=== PATIENT | female | born 1970 | race Caucasian/White ===

== ENCOUNTER 2018-04-18 17:45 | Inpatient (IN) ==
[2018-04-22 10:15] VITALS: RESP 18
[2018-04-22 13:50] VITALS: O2SAT 97
[2018-04-22 18:31] VITALS: BP 144/85; PULSE 63; TEMP 98.5
== END 2018-04-22 18:15 | disposition home or self-care (01) ==
LOC: EDBD → NEPE 17:45 → NEDA 20:30 → HIMC 22:25 → N06 04-21 00:18
PROVIDERS: ADMIT Family Medicine; ATTEND Family Medicine